=== PATIENT | female | born 1955 | race Caucasian/White ===

== ENCOUNTER 2022-01-08 12:06 | Outpatient (CLI) | payer MEDICARE ==
--- NOTE | 2022-01-08 13:07 | Ultrasound Report ---
PROCEDURE: Duplex Ext Veins Left INDICATIONS: L LEG PAIN TECHNIQUE: Real-time imaging, as well as color and pulse Doppler interrogation, were performed of the lower extr emity deep veins from the inguinal ligament to the popliteal fossa. COMPARISON: None. FINDINGS: The deep veins are normally compressible, and free of intraluminal thrombus. Color and pu lse Doppler demonstrate normal phasic intraluminal flow. There is normal augmentation response to di stal compression maneuver. A 3.5 x 1.3 x 1.7 cm hypoechoic lesion is seen in the medial soft tissues, which may reflect a cyst o r hematoma. IMPRESSION: No evidence of DVT. Reviewed by: Robin Bee MD on 01/08/2022 1:06 PM PDT Approved by: Robin Bee MD on 01/08/2022 1:06 PM PDT Station ID: [id number]
== END 2022-01-08 12:07 | disposition home or self-care (01) ==
LOC: DI 12:06
PROVIDERS: ATTEND Internal Medicine
DX: M79.605 Pain in left leg (principal)

== ENCOUNTER 2022-01-27 09:42 | Outpatient (CLI) | payer OTHER ==
--- NOTE | 2022-01-27 13:19 | DEXA Report ---
PROCEDURE: Dexa Spine and/or Hip INDICATIONS: FIBROIDS, THYROID NODULE, OSTEOPENIA TECHNIQUE: Dual energy x-ray absorptiometry (DXA) was performed on a [employer] System. Regions measur ed are the AP Spine, femoral neck, and if needed forearm. COMPARISON: None. FINDINGS: Lumbar Spine: Bone Mineral Density 1.146 g/cm/cm,T score -0.4, normal Left Hip: Bone Mineral Density 0.750 g/cm/cm,T score -2.0, osteopenia Left Femoral Neck: Bone Mineral Density 0.676 g/cm/cm, T score -2.6, osteoporosis (T score greater or equal to -1.0: NORMAL) (T score from -1.1 to -2.4: OSTEOPENIA) (T score less than or equal to -2.5 to: OSTEOPOROSIS) Impression: Osteoporosis. Patient is at high risk for fracture. Patients with diagnosis of osteoporosis or osteopenia should have regular bone mineral density assess ment. For those eligible for Medicare, routine testing is allowed once every 2 years. Testing frequ ency can be increased for patients who have rapidly progressing disease or for those who are receivin g medical therapy to restore bone mass. Reviewed by: Andres Durham MD on 01/27/2022 1:17 PM PDT Approved by: Andres Durham MD on 01/27/2022 1:17 PM PDT Station ID: [id number]
--- NOTE | 2022-01-27 14:34 | Ultrasound Report ---
PROCEDURE: Head or Neck Soft Tissue INDICATIONS: FIBROIDS, THYROID NODULE, OSTEOPENIA TECHNIQUE: Real-time scanning was performed of the thyroid gland, with image documentation. COMPARISON: None FINDINGS: Right: Thyroid lobe measures 1.4 x 1.5 x 4.3 cm, and is homogeneous in echotexture. Left: Thyroid lobe measures 1.7 x 1.7 x 4.3 cm, and is homogenous in echotexture. Isthmus: 2.2 mm thick. Nodule number: One Location: Right mid Size: 0.5 x 0.4 x 0.4 cm. Composition: Solid Echogenicity: Hypoechoic Shape: wider than tall. Margins: Smooth Echogenic foci: Peripheral calcifications Total points: 6 ACR TI-RADS category: Moderately suspicious Nodule number: Two Location: Right inferior Size: 0.5 x 0.3 x 0.4 cm. Composition: Solid Echogenicity: Isoechoic Shape: wider than tall. Margins: Smooth Echogenic foci: None Total points: 3 ACR TI-RADS category: Mildly suspicious Nodule number: Three Location: Left superior Size: 0.5 x 0.5 x 0.4 cm. Composition: Solid Echogenicity: Hyperechoic Shape: wider than tall. Margins: Smooth Echogenic foci: None Total points: 3 ACR TI-RADS category: Mildly suspicious Nodule number: Four Location: Left mid inferior Size: 2.0 x 1.5 x 1.2 cm. Composition: Solid Echogenicity: Isoechoic Shape: wider than tall. Margins: Smooth Echogenic foci: None Total points: 3 ACR TI-RADS category: Mildly suspicious Nodule number: 5 Location: Left inferior lateral Size: 0.5 x 1.0 x 0.3 cm. Composition: Solid Echogenicity: Hypoechoic Shape: wider than tall. Margins: Smooth Echogenic foci: Punctate Total points: 6 ACR TI-RADS category: Moderately suspicious IMPRESSION: Multiple thyroid nodules. Based on CT characteristics of the nodules and criteria outlin ed below nodule finding should be followed at 1, 2, 3 and 5 year intervals. ACR TI-RADS definitions and recommendations: TI-RADS 1 (benign): 0 points. FNA not needed. TI-RADS 2 (not suspicious): 2 points. FNA not needed. TI-RADS 3 (mildly suspicious): 3 points. "FNA if 2.5 cm or larger, follow up if 1.5 cm or larger (at 1, 3, and 5 years). TI-RADS 4 (moderately suspicious): 4-6 points. "FNA if 1.5 cm or larger, follow up if 1 cm or larger (at 1, 2, 3, and 5 years). TI-RADS 5 (highly suspicious): 7 points or more. "FNA if 1 cm or larger, follow up if 0.5 cm or larger (every year for 5 years). Reviewed by: Ashly Meadows MD, PhD on 01/27/2022 2:32 PM PDT Approved by: Ashly Meadows MD, PhD on 01/27/2022 2:32 PM PDT Station ID: [id number]
== END 2022-01-27 09:43 | disposition home or self-care (01) ==
LOC: DI 09:42
PROVIDERS: ATTEND Internal Medicine
DX: E04.2 Nontoxic multinodular goiter (principal); M81.0 Age-related osteoporosis without current pathological fracture

== ENCOUNTER 2023-04-26 16:37 | Outpatient (CLI) | payer MEDICARE ==
[2023-04-26 17:04] LABS: BASOPHILS # (AUTO) 0.1 10^3/uL (0.0-0.1); BASOPHILS % (AUTO) 0.6 %; EOSINOPHILS # (AUTO) 0.1 10^3/uL (0.0-0.7); EOSINOPHILS % (AUTO) 0.9 %; HCT - HEMATOCRIT 39.1 % (37.0-47.0); HGB - HEMOGLOBIN 12.4 g/dL (12.0-16.0); LYMPHOCYTES # (AUTO) 2.2 10^3/uL (1.5-3.5); LYMPHOCYTES % (AUTO) 25.4 %; MEAN CORPUSCULAR HGB CONC 31.7 g/dL (32.0-36.0); MEAN CORPUSCULAR VOLUME 78.8 fL (81.0-99.0); MEAN PLATELET VOLUME 9.7 fL (7.9-10.8); MONOCYTES # (AUTO) 0.9 10^3/uL (0.0-1.0); MONOCYTES % (AUTO) 10.3 %; NEUTROPHILS # (AUTO) 5.4 10^3/uL (1.5-6.6); NEUTROPHILS % (AUTO) 62.6 %; PLT - PLATELET COUNT 355 10^3/uL (130-450); RED BLOOD COUNT 4.96 10^6/uL (4.20-5.40); RED CELL DISTRIBUTION WIDTH 18.5 % (12.0-15.0); WHITE BLOOD COUNT 8.6 x10^3/uL (4.8-10.8)
[2023-04-26 17:14] LABS: CRP - C-REACTIVE PROTEIN 2.8 mg/dL (<0.5)
== END 2023-04-26 16:38 | disposition home or self-care (01) ==
LOC: LAB 16:37
PROVIDERS: ATTEND Internal Medicine
DX: R50.9 Fever, unspecified (principal); M79.10 Myalgia, unspecified site; M35.3 Polymyalgia rheumatica
CPT/HCPCS: 36415; 82550; 85025; 85651; 86140

== ENCOUNTER 2023-11-17 09:43 | Outpatient (CLI) | payer MEDICARE ==
--- NOTE | 2023-11-17 14:26 | DEXA Report ---
PROCEDURE: Dexa Spine and/or Hip INDICATIONS: OSTEOPOROSIS TECHNIQUE: Dual energy x-ray absorptiometry (DXA) was performed on a [employer] System. Regions measur ed are the AP Spine, femoral neck, and if needed forearm. COMPARISON: 01/27/2022 FINDINGS: Lumbar Spine: L1-L2. There is no prior exam demonstrates L1-L4 or L2-L4 both with normal bone mineral density Bone Mineral Density: 0.917 g/cm/cm,T score: -2.1. Left Femoral Neck: Bone Mineral Density: 0.668 g/cm/cm, T score: -2.7, compared to -2.6. Left Hip: Bone Mineral Density: 0.712 g/cm/cm,T score: -2.3, compared to -2.0. (T score greater or equal to -1.0: NORMAL) (T score from -1.1 to -2.4: OSTEOPENIA) (T score less than or equal to -2.5 to: OSTEOPOROSIS) Impression: By WHO criteria, this patient has osteoporosis in the femoral neck, minimally progressive as well as mildly progressive osteopenia in the left hip. Osteopenia is present in the lumbar spine Patients with diagnosis of osteoporosis or osteopenia should have regular bone mineral density assess ment. For those eligible for Medicare, routine testing is allowed once every 2 years. Testing frequ ency can be increased for patients who have rapidly progressing disease or for those who are receivin g medical therapy to restore bone mass. Reviewed by: Veda Ritter MD on 11/17/2023 2:24 PM PDT Approved by: Veda Ritter MD on 11/17/2023 2:24 PM PDT Station ID: [id number]
== END 2023-11-17 09:44 | disposition home or self-care (01) ==
LOC: DI 09:43
PROVIDERS: ATTEND Internal Medicine Rheumatology
DX: Z15.89 Genetic susceptibility to other disease (principal); M35.3 Polymyalgia rheumatica; M81.0 Age-related osteoporosis without current pathological fracture; Z79.52 Long term (current) use of systemic steroids